=== PATIENT | female | born 1980 | race Caucasian/White ===

== ENCOUNTER 2021-04-11 17:29 | Emergency (ER) | payer OTHER ==
[2021-04-11 20:17] LABS: HEMOGLOBIN 14.4 gm/dl (12.3-15.3); RED BLOOD COUNT 4.84 M/UL (4.00-5.10); WHITE BLOOD COUNT 11.9 K/UL (4.5-11.0)
[2021-04-11 20:24] LABS: BUN/CREATININE RATIO 13 (0-10)
[2021-04-11] MEDS ORDERED: BENTYL 20MG TAB20 MG PO (22:37)
[2021-04-11] MEDS ORDERED: ZOFRAN ODT 4 MG4 MG PO (22:37)
[2021-04-11] MEDS ORDERED: AUGMENTIN 875-1 EACH PO (22:37)
== END 2021-04-11 23:00 | disposition home or self-care (01) ==
LOC: ER1 17:29
PROVIDERS: Physician Assistant Medical
DX: K52.9 Noninfective gastroenteritis and colitis, unspecified (principal)
CPT/HCPCS: 80053; 81001; 84703; 85025; 87086; 99284; Q9967